=== PATIENT | male | born 1950 | race Caucasian/White ===

== ENCOUNTER 2020-06-25 08:31 | Emergency (ER) | payer MEDICARE, OTHER ==
[~2020-06-25 08:31] MED LIST: ADVAIR 250-501 EACH INH; ASPIRIN EC81 MG PO; ATORVASTATIN CA20 MG PO; BUSPIRONE HCL7.5 MG PO; CARVEDILOL3.125 MG PO; CELEBREX200 MG PO; CLOPIDOGREL75 MG PO; FLAGYL500 MG PO; FLOMAX 0.4 MG0.4 MG PO; GLUCOPHAGE 500500 MG PO; IBU800 MG PO; KLONOPIN1 MG PO; LISINOPRIL10 MG PO; MEDROL DOSEPAK 24 MG PO; NASONEX17 GM; PANTOPRAZOLE SO40 MG PO; PRAVACHOL40 MG PO; PROSCAR 5 MG TAB5 MG PO; PROTONIX40 MG PO; SERTRALINE HCL50 MG PO; TRAZODONE HCL100 MG PO; VENTOLIN HFA 66.7 GM INH; VOLTAREN EC 7575 MG PO; ZANTAC 150 MG150 MG PO
[2020-06-25 10:35] LABS: HEMOGLOBIN 15.7 gm/dl (14.0-17.5); RED BLOOD COUNT 5.07 M/UL (4.20-5.50); WHITE BLOOD COUNT 5.9 K/UL (4.5-11.0)
[2020-06-25 10:57] LABS: BUN/CREATININE RATIO 18 (0-10)
== END 2020-06-25 11:27 | disposition home or self-care (01) ==
LOC: ER1 08:31
PROVIDERS: Physician Assistant
DX: R10.12 Left upper quadrant pain (principal); G89.29 Other chronic pain; R11.2 Nausea with vomiting, unspecified; R19.7 Diarrhea, unspecified; R68.83 Chills (without fever); I10 Essential (primary) hypertension; E78.5 Hyperlipidemia, unspecified; K21.9 Gastro-esophageal reflux disease without esophagitis; Z79.02 Long term (current) use of antithrombotics/antiplatelets; Z79.899 Other long term (current) drug therapy; Z87.19 Personal history of other diseases of the digestive system; Z90.49 Acquired absence of other specified parts of digestive tract; Z95.5 Presence of coronary angioplasty implant and graft
CPT/HCPCS: 80053; 82150; 83690; 85025; 99284

== ENCOUNTER → 2020-06-26 | Outpatient (CLI) | payer MEDICARE, OTHER ==
[~2020-06-26] MED LIST changes: +ACYCLOVIR200 MG PO; +AUGMENTIN 500-500 MG PO; +PERCOCET 5-3251 EACH PO
== END ==
LOC: CT 06:38
DX: R10.9 Unspecified abdominal pain (principal); N20.0 Calculus of kidney
CPT/HCPCS: Q9967

== ENCOUNTER → 2020-07-11 | Outpatient (CLI) | payer MEDICARE, OTHER ==
[2020-07-11 09:02] LABS: HEMOGLOBIN 15.7 gm/dl (14.0-17.5); RED BLOOD COUNT 5.13 M/UL (4.20-5.50); WHITE BLOOD COUNT 6.2 K/UL (4.5-11.0)
== END ==
LOC: US 11-14 09:30
PROVIDERS: Radiology Diagnostic Radiology
DX: Z01.812 Encounter for preprocedural laboratory examination (principal); D11.0 Benign neoplasm of parotid gland
CPT/HCPCS: 36415; 85027; 85610

== ENCOUNTER 2020-07-17 03:15 | Emergency (ER) | payer MEDICARE, OTHER ==
[~2020-07-17 03:15] MED LIST changes: -ACYCLOVIR200 MG PO; -AUGMENTIN 500-500 MG PO; -PERCOCET 5-3251 EACH PO
[2020-07-17 04:45] LABS: RED BLOOD COUNT 5.19 M/UL (4.20-5.50); WHITE BLOOD COUNT 6.1 K/UL (4.5-11.0)
[2020-07-17 05:05] LABS: BUN/CREATININE RATIO 24 (0-10)
[2020-07-17] MEDS ORDERED: PERCOCET 5-3251 EACH PO (08:51)
== END 2020-07-17 09:14 | disposition home or self-care (01) ==
LOC: ER1 03:15
PROVIDERS: Emergency Medicine
DX: R51.9 Headache, unspecified (principal); K11.8 Other diseases of salivary glands; M54.2 Cervicalgia; R55 Syncope and collapse; I10 Essential (primary) hypertension; I25.10 Atherosclerotic heart disease of native coronary artery without angina pectoris; Z98.890 Other specified postprocedural states; I25.2 Old myocardial infarction; E11.9 Type 2 diabetes mellitus without complications; Z87.19 Personal history of other diseases of the digestive system
CPT/HCPCS: 70450; 70486; 71045; 80053; 81001; 82550; 82553; 82962; 84484; 85025; 85379; 85610; 85730; 87070; 87205; 93005; 96374; 96375; 99284; J2405; J3010; Q9967

== ENCOUNTER 2020-07-23 17:31 | Emergency (ER) | payer MEDICARE, OTHER ==
[~2020-07-23 17:31] MED LIST changes: +PERCOCET 5-3251 EACH PO
== END 2020-07-23 18:38 | disposition left against medical advice (07) ==
LOC: ER1 17:31
DX: R07.9 Chest pain, unspecified (principal); Z53.21 Procedure and treatment not carried out due to patient leaving prior to being seen by health care provider

== ENCOUNTER 2020-11-09 20:10 | Inpatient (IN) | payer MEDICARE, OTHER ==
[~2020-11-09] VITALS: Ht 180.3 cm; Wt 94.3 kg
[2020-11-09 21:59] LABS: HEMOGLOBIN 14.8 gm/dl (14.0-17.5); RED BLOOD COUNT 4.67 M/UL (4.20-5.50); WHITE BLOOD COUNT 11.5 K/UL (4.5-11.0)
[2020-11-09 22:22] LABS: BUN/CREATININE RATIO 30 (0-10)
[2020-11-11 05:43] LABS: HEMOGLOBIN 12.7 gm/dl (14.0-17.5); RED BLOOD COUNT 4.07 M/UL (4.20-5.50); WHITE BLOOD COUNT 5.8 K/UL (4.5-11.0)
[2020-11-11 05:46] LABS: BUN/CREATININE RATIO 24 (0-10)
[2020-11-12 06:36] LABS: RED BLOOD COUNT 4.16 M/UL (4.20-5.50); WHITE BLOOD COUNT 5.3 K/UL (4.5-11.0)
[2020-11-12 06:52] LABS: BUN/CREATININE RATIO 21 (0-10)
[2020-11-12] MEDS ORDERED: ACYCLOVIR200 MG PO (10:56)
[2020-11-12] MEDS ORDERED: AUGMENTIN 500-500 MG PO (10:56)
== END 2020-11-12 12:25 | disposition home or self-care (01) | DRG 871 ==
LOC: ER1 20:10 → CDU 11-10 01:07 → MED SURG 4 11-10 01:07
PROVIDERS: Internal Medicine; Student in an Organized Health Care Education/Training Program; ADMIT Internal Medicine
DX: B00.7 Disseminated herpesviral disease (principal); G93.41 Metabolic encephalopathy; Z20.822 Contact with and (suspected) exposure to COVID-19; B00.4 Herpesviral encephalitis; J96.21 Acute and chronic respiratory failure with hypoxia; J96.01 Acute respiratory failure with hypoxia; J15.9 Unspecified bacterial pneumonia; B00.1 Herpesviral vesicular dermatitis; R65.20 Severe sepsis without septic shock; I10 Essential (primary) hypertension; I95.9 Hypotension, unspecified; K21.9 Gastro-esophageal reflux disease without esophagitis; I25.10 Atherosclerotic heart disease of native coronary artery without angina pectoris; E11.9 Type 2 diabetes mellitus without complications; E78.5 Hyperlipidemia, unspecified; Z79.82 Long term (current) use of aspirin; Z90.49 Acquired absence of other specified parts of digestive tract; Z98.890 Other specified postprocedural states; Z79.4 Long term (current) use of insulin
CPT/HCPCS: 0240U; 36415; 36600; 70450; 71045; 80048; 80053; 82550; 82553; 82803; 82962; 83605; 83735; 83880; 84100; 84484; 85025; 86140; 86695; 86696; 87040; 93005; 94640; 94664; 94760; 96365; 96366; 96375; 99285; G0480; J0456; J0696; J1650; J3370; J7030; Q9967

== ENCOUNTER 2021-03-28 11:28 | Emergency (ER) | payer MEDICARE, OTHER ==
[~2021-03-28 11:28] MED LIST changes: +ACYCLOVIR200 MG PO; +AUGMENTIN 500-500 MG PO
[2021-03-28 13:04] LABS: HEMOGLOBIN 15.5 gm/dl (14.0-17.5); RED BLOOD COUNT 4.78 M/UL (4.20-5.50); WHITE BLOOD COUNT 6.7 K/UL (4.5-11.0)
[2021-03-28 13:23] LABS: BUN/CREATININE RATIO 16 (0-10)
== END 2021-03-28 13:40 | disposition home or self-care (01) ==
LOC: ER1 11:28
PROVIDERS: Physician Assistant Medical
DX: I95.1 Orthostatic hypotension (principal); I25.10 Atherosclerotic heart disease of native coronary artery without angina pectoris; J45.909 Unspecified asthma, uncomplicated; E11.9 Type 2 diabetes mellitus without complications; Z79.82 Long term (current) use of aspirin; Z90.89 Acquired absence of other organs; F17.200 Nicotine dependence, unspecified, uncomplicated
CPT/HCPCS: 70450; 71045; 80053; 81001; 82550; 82553; 83874; 84484; 85025; 85379; 93005; 99284; J7030

== ENCOUNTER → 2021-04-08 | Outpatient (CLI) | payer MEDICARE, OTHER ==
[2021-04-08 09:02] LABS: HEMOGLOBIN 15.5 gm/dl (14.0-17.5); RED BLOOD COUNT 4.92 M/UL (4.20-5.50); WHITE BLOOD COUNT 6.5 K/UL (4.5-11.0)
[2021-04-08 09:22] LABS: BUN/CREATININE RATIO 21 (0-10)
[2021-04-09 11:14] LABS: CREATININE, URINE 117.1 mg/dL (Not Estab.)
== END ==
LOC: LAB 08:03
PROVIDERS: Nurse Practitioner Family
DX: E11.9 Type 2 diabetes mellitus without complications (principal); E78.5 Hyperlipidemia, unspecified; F41.9 Anxiety disorder, unspecified; N40.0 Benign prostatic hyperplasia without lower urinary tract symptoms; E55.9 Vitamin D deficiency, unspecified
CPT/HCPCS: 36415; 80053; 80061; 82043; 82570; 83036; 84153; 84439; 84443; 85025

== ENCOUNTER → 2021-05-06 | Outpatient (CLI) | payer MEDICARE, OTHER ==
[2021-05-06 12:57] LABS: HEMOGLOBIN 16.3 gm/dl (14.0-17.5); RED BLOOD COUNT 5.05 M/UL (4.20-5.50); WHITE BLOOD COUNT 7.1 K/UL (4.5-11.0)
[2021-05-06 14:03] LABS: BUN/CREATININE RATIO 17 (0-10)
== END ==
LOC: LAB 12:04
PROVIDERS: Nurse Practitioner Family
DX: R10.9 Unspecified abdominal pain (principal)
CPT/HCPCS: 36415; 80048; 81001; 85025; 87077; 87086; 87186

== ENCOUNTER → 2021-05-07 | Outpatient (CLI) | payer MEDICARE, OTHER | LOC: CT 07:54 | DX: R10.30 Lower abdominal pain, unspecified (principal) | CPT/HCPCS: Q9967 ==

== ENCOUNTER → 2021-06-03 | Outpatient (CLI) | payer MEDICARE, OTHER | LOC: KOH-I 13:00 | DX: D11.0 Benign neoplasm of parotid gland (principal) | CPT/HCPCS: 76536 ==

== ENCOUNTER 2021-10-30 11:03 | Emergency (ER) | payer MEDICARE, OTHER | END 2021-10-30 13:50 | disposition home or self-care (01) | LOC: ER1 11:03 | DX: S81.812A Laceration without foreign body, left lower leg, initial encounter (principal); Z23 Encounter for immunization; E78.5 Hyperlipidemia, unspecified; I51.9 Heart disease, unspecified; Z79.02 Long term (current) use of antithrombotics/antiplatelets; W26.8XXA Contact with other sharp object(s), not elsewhere classified, initial encounter; Y92.009 Unspecified place in unspecified non-institutional (private) residence as the place of occurrence of the external cause | CPT/HCPCS: 12002; 90471; 90715; 96374; 99282; J7040 ==

== ENCOUNTER → 2022-01-08 | Outpatient (CLI) | payer MEDICARE, OTHER | LOC: EXRD 11:02 | DX: D11.0 Benign neoplasm of parotid gland (principal); E04.2 Nontoxic multinodular goiter | CPT/HCPCS: 76536 ==

== ENCOUNTER → 2022-03-10 | Outpatient (CLI) | payer MEDICARE, OTHER | LOC: LAB 12:00 | DX: I10 Essential (primary) hypertension (principal) | CPT/HCPCS: 71046; 93005 ==

== ENCOUNTER 2022-03-24 09:47 | Emergency (ER) | payer MEDICARE, OTHER | END 2022-03-24 12:50 | disposition left against medical advice (07) | LOC: ER1 09:47 | DX: Z53.21 Procedure and treatment not carried out due to patient leaving prior to being seen by health care provider (principal) ==